=== PATIENT | female | born 1995 | race African-American/Black ===

== ENCOUNTER 2022-04-15 17:18 | Emergency (ER) | payer OTHER ==
[~2022-04-15] VITALS: Ht 165.1 cm; Wt 68.0 kg
[2022-04-15] VITALS (7 sets, daily range): BP systolic 105–126; BP diastolic 75–86
[2022-04-15 17:59] LABS: HEMATOCRIT 35.1 % (37.0-47.0); HEMOGLOBIN 12.6 g/dl (12.0-16.0); IMMATURE GRANULOCYTES 0.7 % (0.0-5.0); MEAN CELL VOLUME 87.8 fL CALC (80.0-100.0); MEAN CORPUSCULAR HGB 31.5 pG CALC (26.0-32.0); MEAN CORPUSCULAR HGB CONC 35.9 g/dL CAL (32.0-36.0); NEUT# 8.15 thou/uL (2.00-7.15); RED CELL DISTRI WIDTH 11.9 % (11.5-15.5)
[2022-04-15 18:13] LABS: ALBUMIN 4.1 g/dL (3.2-5.0); ALKALINE PHOSPHATASE 59 u/l (38-126); ANION GAP 14 (6-22 (CALC)); BILIRUBIN, TOTAL 0.4 mg/dL (0.0-1.4); BUN 7 mg/dL (7-17); BUN/CREATININE RATIO 11 (12-20 (CALC)); CARBON DIOXIDE 22 mmol/l (22-30); CHLORIDE 104 mmol/l (95-108); CREATININE 0.7 mg/dL (0.5-1.0); GFR FOR AFR.AMER. > 60 ML/MIN (>=60 (CALC)); GFR OTHER RACES > 60 ML/MIN (>=60 (CALC)); POTASSIUM 3.7 mmol/l (3.5-5.1); SGOT/AST 16 u/l (14-36); SODIUM 136 mmol/l (137-146); TOTAL PROTEIN 7.4 g/dL (6.3-8.2)
[2022-04-15 18:53] LABS: BETA-HCG, QUANT(RESULT NUMBER) 38953 mIU/mL
[2022-04-15 19:17] LABS: URINE BILIRUBIN - DIPSTICK NEGATIVE (NEGATIVE); URINE BLOOD DIPSTICK LARGE (NEGATIVE); URINE COLOR YELLOW; URINE GLUCOSE - DIPSTICK NEGATIVE (NEGATIVE); URINE KETONE 40 mg/dL (NEGATIVE); URINE LEUK ESTERASE NEGATIVE (NEGATIVE); URINE PH 5.5 (4.5-8.0); URINE PROTEIN - DIPSTICK 30 mg/dL (NEG-TRACE); URINE SPECIFIC GRAVITY >=1.030
[2022-04-15 19:18] LABS: URINE NITRITE - DIPSTICK NEGATIVE (Negative); URINE RBC >100 RBC/hpf (0-5); URINE SQUAMOUS EPITHELIAL CELL FEW EPI/hpf (0-FEW)
== END 2022-04-16 00:25 | disposition home or self-care (01) ==
LOC: ED 17:18
PROVIDERS: Emergency Medicine; Family Medicine
DX: O20.0 Threatened abortion (principal); Z3A.16 16 weeks gestation of pregnancy